=== PATIENT | female | born 1990 | race Caucasian/White ===

== ENCOUNTER → 2020-11-10 | Outpatient (CLI) | payer BC ==
[~2020-11-10] MED LIST: ADAP45GE TP; CEPH500C PO; DIAZ10TA3 PO; MINO100C6 PO; MINO50CA2 PO; PNV91TAB3 PO; PRD20T PO
--- NOTE | 2020-11-10 12:56 | Diagnostic Imaging Report ---
PROCEDURE: US Non-ob pelvis comp/trans. TECHNIQUE: Multiple realtime grayscale images were obtained of the pelvis in various projections endovaginally. Transabdominal imaging was also performed. INDICATION: Irregular period. There are no prior studies available for comparison. The uterus is nongravid and not enlarged measuring 7.0 x 3.6 x 5.5 cm. The endometrial lining is not thickened, measuring 4 mm. The transverse images of the endometrium suggest that the endometrium may be septated. There is no focal mass involving the uterus to suggest a fibroid. Both ovaries were identified and were unremarkable. There is no evidence for torsion. There is no solid pelvic mass or free fluid collection evident. IMPRESSION: There is no evidence for an acute pelvic abnormality. Dictated by: Dictated on workstation # [id number]
== END ==
LOC: RAD 10:49
PROVIDERS: ATTEND Nurse Practitioner Family
DX: N92.6 Irregular menstruation, unspecified (principal); E28.2 Polycystic ovarian syndrome
CPT/HCPCS: 76830; 76856

== ENCOUNTER → 2021-02-09 | Outpatient (CLI) | payer BC | END | disposition home or self-care (01) | LOC: PREOP 05:35 | PROVIDERS: ATTEND Surgery | DX: Z01.818 Encounter for other preprocedural examination (principal) ==

== ENCOUNTER 2021-04-01 05:37 | Outpatient (CLI) | payer BC ==
[~2021-04-01] VITALS: Ht 175.3 cm; Wt 122.7 kg
[2021-04-05] MEDS ORDERED: MULT-1136 PO (10:56)
== END 2021-04-05 16:51 | disposition home or self-care (01) ==
LOC: PREOP 05:37
PROVIDERS: ATTEND Surgery
DX: Z01.818 Encounter for other preprocedural examination (principal)

== ENCOUNTER 2021-04-08 12:18 | Day surgery (SDC) | payer BC ==
--- NOTE | 2021-03-30 06:28 | HISTORY AND PHYSICAL ---
DATE OF SERVICE: DATE OF ADMISSION: 04/08/2021. PROCEDURE DATE: 04/08/2021. ATTENDING PRIMARY CARE PHYSICIAN: Dr. Indigo Cabrera. HISTORY OF PRESENT ILLNESS: The patient is a 30-year-old female, who was referred over to us for pain and drainage of the coccygeal region. She reports that she has had intermittent bleeding for the past four years from the gluteal cleft. She reports that approximately two months ago, she did have increased pain and was seen by her primary care physician and was started on antibiotics for an infected pilonidal cyst and reports that this did finally open up and drained a lot of pus-like drainage. She reports that this also did have a foul smell. She reports since then this had seemed to clear up and was not having any pain or bleeding and denied any fever or chills. PAST MEDICAL HISTORY: None. PAST SURGICAL HISTORY: Tonsillectomy and adenoidectomy in 2004. ALLERGIES: No known drug allergies. MEDICATIONS: vitamin and Aleve p.r.n. SOCIAL HISTORY: Positive for positive for tobacco smoke for 15 pack years, rare for alcohol. FAMILY HISTORY: Mother, diabetes. REVIEW OF SYSTEMS: A well-nourished female, in no acute distress. She is not experiencing any shortness of breath or difficulty breathing. No chest pain, palpitations or diaphoresis. No nausea, vomiting or abdominal pain. No diarrhea or constipation. No red blood per rectum. No dark tarry stools. No fever or chills. No recent inadvertent weight loss. She does report pain and drainage of the superior gluteal cleft for the past four years. All other review of systems negative. PHYSICAL EXAMINATION: VITAL SIGNS: Stable. Current weight 266.5 pounds at 5 feet 9 inches. CHEST: Clear. Good breath sounds bilaterally. HEART: Regular, no murmurs. EXTREMITIES: No lower extremity edema. Negative Homans sign. HEENT: No scleral icterus. NECK: No cervical lymphadenopathy. ABDOMEN: Soft, nontender, and nondistended. SKIN: There is a sinus opening noted of the superior gluteal cleft with no active drainage. There are no signs of infection or pain with palpation at this time. This is; however, consistent with a pilonidal cyst. NEUROLOGIC: Awake, alert and oriented x3. ASSESSMENT AND PLAN: A 30-year-old female with a pilonidal cyst. At this time, it was discussed with the patient about surgical intervention with proceeding with a pilonidal cystectomy. The risks and benefits of the procedure as well as the procedure and home care instructions were explained to the patient. The patient verbalized understanding of instructions and agrees to proceed with excision of the pilonidal cyst. We will proceed with scheduling her for the excision of the pilonidal cyst. Job ID: [id number] DocumentID: [id number] Dictated Date: 03/29/2021 13:08:19 Store Worker Date: 03/29/2021 13:45:36 Dictated By: QUIRINO MESSINA APRN
[~2021-04-08] VITALS: Ht 175 cm; Wt 122.7 kg
[2021-04-08] VITALS (9 sets, daily range): BP systolic 99–139; BP diastolic 54–87
[~2021-04-08 12:18] MED LIST changes: +MULT-1136 PO
--- NOTE | 2021-04-08 12:34 | Progress Note-Pre Operative ---
Pre-Operative Progress Note H&P Reviewed The H&P was reviewed, patient examined and no changes noted. Date Seen by Provider: April 08, 2021 Time Seen by Provider: 12:30 Date H&P Reviewed: April 08, 2021 Time H&P Reviewed: 12:25 Pre-Operative Diagnosis: Pilonidal Cyst QUIRINO MESSINA APRN April 08, 2021 12:34
[2021-04-08] MEDS ORDERED: HYDR-3817 PO (12:36)
--- NOTE | 2021-04-08 12:36 | Discharge Inst-Surgical ---
D/C Lap Instructions-KIDO Reconcile Patient Problems Problems Reviewed?: Yes New, Converted, or Re-Newed RX: RX on Chart Follow Up Appt in 2 weeks Activity as tolerated No driving for 24 hours No driving while on pain medications Incentive Spirometry use every 2 hours while awake Regular Diet Symptoms to Report: Fever over 101 degree F, Nausea/Vomiting Infection Signs and Symptoms to report: Increased redness, Foul odor of wound, Increased drainage Bathing instructions: May shower Operative Area Clean/Dry; Keep incision clean/dry If any problems/questions: Contact your physician or go to Emergency Room QUIRINO MESSINA APRN April 08, 2021 12:36
[2021-04-08] MEDS ORDERED: HYDROcodone/APAP 5 MG/325 MG (LORTAB) TAB PO ONE (12:45)
[2021-04-08] MEDS ORDERED: ONDANSETRON 4 MG/2 ML (SDV) Z0FRAN IVP PRN (12:45)
[2021-04-08] MEDS ORDERED: morphine INJ 10 MG/ML 1ML (SYR OR VIAL) IVP PRN (12:45)
[2021-04-08] MEDS ORDERED: ACETAMINOPHEN 325 MG TABLET PO PRN (12:45)
[2021-04-08] MEDS ORDERED: LIDOCAINE/EPI 1%-1:200,000 (XYLOCAINE) 10 ML VIAL ONE (12:49)
[2021-04-08] MEDS ORDERED: ONDANSETRON 4 MG/2 ML (SDV) Z0FRAN ONE (13:10)
[2021-04-08] MEDS ORDERED: fentaNYL INJ 100 MCG/2 ML AMP ONE (13:10)
[2021-04-08] MEDS ORDERED: proPOfol 200 MG/20 ML (DIPRIVAN) VIAL IV ONE (13:10)
[2021-04-08] MEDS ORDERED: SEVOFLURANE (ULTANE) 15 ML INHAL SOLN ONE (13:10)
[2021-04-08] MEDS ORDERED: ROCURONIUM 10 MG/ML 5 ML SYRINGE IV ONE (13:10)
[2021-04-08] MEDS ORDERED: MIDAZOLAM 2 MG/2 ML (VERSED) VIAL ONE (13:11)
[2021-04-08] MEDS ORDERED: ceFAZolin 2 GM IV Premixed 50 ML IV ONE (13:15)
[2021-04-08] MEDS: LACTATED RINGERS 1,000 ML IV PRN ×2 (13:16→16:12)
--- NOTE | 2021-04-08 15:52 | Progress Note-Post Operative ---
Post-Operative Progess Note Surgeon (s)/Cotton Sampler (s) Surgeon LIOR ESTRADA MD Cotton Sampler: abhi chaparro SINGLE WIRE SAW OPERATOR Pre-Operative Diagnosis Pilonidal Cyst Post-Operative Diagnosis same (9x5cm) Procedure & Operative Findings Date of Procedure 04/08/21 Procedure Performed/Findings pilonidal cystectomy, cleft lift reconstruction 9x5cm left lateral skin, subcutaneous and fascia. Anesthesia Type get Estimated Blood Loss Estimated blood loss (mL): minimal Specimens/Packing Specimens Removed excision pilonidal cyst. LIOR ESTRADA MD April 08, 2021 15:52
[2021-04-08] MEDS ORDERED: HYDROcodone/APAP 5 MG/325 MG (LORTAB) TAB ONE (16:44)
--- NOTE | 2021-04-08 21:27 | OPERATIVE REPORT ---
DATE OF SERVICE: 04/08/2021 ATTENDING PRIMARY CARE PHYSICIAN: Dr. Indigo Cabrera. PREOPERATIVE DIAGNOSIS: Pilonidal cyst. POSTOPERATIVE DIAGNOSES: Pilonidal cyst with the dimensions of the cyst 9 x 5 cm in size encompassing skin, subcutaneous tissue and fascia. PROCEDURE: Excision pilonidal cyst with cleft lift reconstruction, left laterally, encompassing skin, subcutaneous tissue and fascia. SURGEON: Lior Estrada MD. DIGITAL STRATEGIST: Oz Salguero APRN. ANESTHESIA: General endotracheal. ESTIMATED BLOOD LOSS: Minimal. FINDINGS: Pilonidal cyst with the dimensions of the cyst 9 x 5 cm in size encompassing skin, subcutaneous tissue and fascia 9x5cm. DISPOSITION: The patient tolerated the procedure well. INDICATIONS: The patient is a 30-year-old female who was referred to us for drainage and pain in the superior gluteal region just above the coccyx bone. She has had intermittent bleeding, pain and swelling for four years. She states that the two months ago, she had increased pain and was seen by her physician and was started on antibiotics and an abscess was identified, which opened up spontaneously with a significant amount of purulent drainage. After the infection cleared, there were several sinus tracts consistent with a pilonidal cyst. DESCRIPTION OF PROCEDURE: The patient was brought to the operating room, laid supine on the table. After adequate IV pain and sedative medications and general endotracheal intubation, the patient was placed in prone position and the perineum prepped and draped in standard surgical fashion. The sinus tracts were probed, which all directed to the same central region. This area was measured out, which was approximately 9 x 5 cm. We made our incision left laterally to plan our reconstruction as a cleft lift type left lateral to offload pressure on the wound. A skin incision was made using a 15 blade. The subcutaneous tissue was then dissected down to the center of the cyst, which was overlying the sacrum. This was then fully excised using electrocautery encompassing the skin, subcutaneous tissue and fascia overlying the sacral bone. Good hemostasis was observed. We then proceeded with tissue flaps encompassing first the fascia to the muscle layer to the subcutaneous tissue level. This was then reapproximated using 0 Vicryl interrupted sutures. We then proceeded to reapproximate the subcutaneous tissue, left lateral and a crescent shaped using interrupted 0 Vicryl sutures. Skin was closed using 4-0 nylon interrupted sutures. The lesion was then cleaned and covered with sterile gauze followed by ABD pad followed by mesh shorts. The patient tolerated the procedure well. We will start IV normal pain medications with a clear liquid diet. Once she is tolerating clears, has good pain control with oral pain medications, ambulating well, we will discharge her home. She will be instructed to offload pressure in the sacrococcygeal region and to keep the area as clean and dry as possible and place gauze dressing b.i.d. as well as on a p.r.n. basis. Job ID: [id number] DocumentID: [id number] Dictated Date: 04/08/2021 16:02:38 Nylon Mender Date: 04/08/2021 21:26:24 Dictated By: LIOR ESTRADA MD MTDD
--- NOTE | 2021-04-19 11:39 | Anesthesia-General Post-Op ---
General Significant Intra-Op Events Notes post date entry: 04-08-21 at 1700 Patient Condition Mental Status/LOC: Same as Preop Cardiovascular: Satisfactory Nausea/Vomiting: Absent Respiratory: Satisfactory Pain: Controlled Complications: Absent Post Op Complications Complications None Follow Up Care/Instructions Patient Instructions None needed. Anesthesia/Patient Condition Patient Condition Patient is doing well, no complaints, stable vital signs, no apparent adverse anesthesia problems. No complications reported per nursing. JUVENAL GARAY CRNA April 19, 2021 11:39
== END 2021-04-08 17:55 | disposition home or self-care (01) ==
LOC: SDC 12:18
PROVIDERS: ATTEND Surgery
DX: L05.91 Pilonidal cyst without abscess (principal); F41.9 Anxiety disorder, unspecified; E66.01 Morbid (severe) obesity due to excess calories; Z68.41 Body mass index [BMI] 40.0-44.9, adult; Z79.899 Other long term (current) drug therapy; Z87.891 Personal history of nicotine dependence
CPT/HCPCS: 84703; 87081; 88304